=== PATIENT | female | born 1975 | race Caucasian/White ===

== ENCOUNTER → 2016-06-02 | Outpatient (CLI) | payer BC ==
[~2016-06-02] MED LIST: LIDOCAINE HCL 2% 2 ML VIAL (20MG/ML) ONE; MIDAZOLAM HCL 1 MG/ML 2ML VIAL ONE; PROPOFOL IV EMULSION 10 MG/ML 20 ML VIAL IV ONE
--- NOTE | 2016-06-02 19:12 | DIAGNOSTIC IMAGING REPORT ---
MRI RIGHT FOREFOOT WITHOUT IV CONTRAST CLINICAL HISTORY: Toe pain. Clinical concern for fracture. COMPARISON STUDY: No priors. TECHNIQUE: MRI of the right forefoot is performed utilizing various T1 and T2-weighted sequences in the axial, sagittal, coronal planes. IV contrast was not administered for this examination. Note that interpretation is suboptimal without plain film correlate. FINDINGS: There is no MRI evidence of fracture in the right forefoot. No marrow edema is seen. The joint spaces are preserved. The overlying soft tissues are within normal limits. The regional musculature is normal in bulk and signal intensity. The visualized flexor and extensor tendons are intact. IMPRESSION: Unremarkable MRI assessment of the right forefoot. There is no MRI evidence of fracture as clinically queried. Dictated: 06/02/2016 6:48 PM Transcribed: 06/02/2016 7:11 PM JARROD_[email or web address] Electronically signed by: Davide Munguia M.D. 06/02/2016 7:20 PM Dictated Date/Time: 06/02/2016 6:48 PM
== END | disposition home or self-care (01) ==
LOC: MERGE 17:48 → C.MRI 17:48
PROVIDERS: ATTEND Podiatrist Foot & Ankle Surgery
DX: M79.674 Pain in right toe(s) (principal); S92.901A Unspecified fracture of right foot, initial encounter for closed fracture; X58.XXXA Exposure to other specified factors, initial encounter

== ENCOUNTER → 2016-06-13 | Day surgery (SDC) | payer BC ==
[2016-06-12 08:56] VITALS: Ht 179.1 cm; Wt 81.8 kg
[~2016-06-13] VITALS: Ht 179.1 cm; Wt 81.8 kg
[~2016-06-13] MED LIST changes: +ATROPINE SULFATE 0.1 MG/ML 5ML SYR IV PRN; +BUPIVACAINE 0.5 % 5 MG/1 ML MPF 30ML VIAL ONE; +CEFAZOLIN 2000 MG/60 ML D5W IV SCH; +DEXAMETHASONE SOD INJ 4 MG/ML VIAL ONE; +EpHEDrine SULFATE INJ 50 MG/ML AMP IV PRN; +FENTANYL CITRATE INJ 50 MCG/1 ML 2 ML VIAL IV PRN; +FENTANYL CITRATE INJ 50 MCG/1 ML 2 ML VIAL ONE; +FLUMAZENIL 0.1 MG/1 ML 10 ML VIAL IV PRN; +HYDROCODONE/ACETAMOPHEN 5/325MG TAB PO PRN; +HYDROmorphone INJ 2 MG/ML SYR/VIAL IV PRN; +LABETALOL HCL IV 5 MG/ML 20ML IV PRN; +LACTATED RINGER'S 1000ML 1,000 ML IV SCH; +LIDOCAINE HCL 1% 20 ML VIAL ONE; +MEPERIDINE HCL 25 MG/ML CARP IV PRN; +METOCLOPRAMIDE HCL INJ 5 MG/ML 2 ML VIAL IV PRN; +NALOXONE HCL 0.4 MG/1 ML VIAL/CARP IV PRN; +ONDANSETRON INJ 2 MG/ML 2 ML VIAL IV PRN; +ONDANSETRON INJ 2 MG/ML 2 ML VIAL ONE; +OXYCODONE/ACETAMINOPHEN 5-325 TAB PO PRN; +PHENYLEPHRINE 100MCG/ML 5ML SYR IV PRN; +SODIUM CHLORIDE 0.9% 1000ML 1,000 ML IV SCH
--- NOTE | 2016-06-13 06:55 | History & Physical Bridge - [place] ---
H&P Re-Evaluation Bridge Note: I have examined the patient, reviewed the History & Physical and in the interval since the performance of the History & Physical I have noted the following changes of clinical significance: No changes noted procedure is right foot bunion correction with fixation and right foot fifth digit hammertoe correction.
--- NOTE | 2016-06-13 08:54 | Discharge Instructions-SurgCtr ---
Discharge Instructions Visit Reason for Visit: Right Foot Hammertoe, Hallux Valgus, Pain Discharge Goals Goal(s): Decrease discomfort, Improve function Activity Recommendations Activity Limitations: as noted below (non weightbearing right foot) Lifting Limitations: no more than 5 pounds Exercise/Sports Limitations: none Shower/Bathe: keep incision dry Driving or Machine Use: no driving Anesthesia . Post Anesthesia Instructions: If you have had General Anesthesia or IV Sedation: * Do not drive today. * Resume driving when surgeon permits. * Do not make important decisions or sign legal documents today. * Call surgeon for: 1. Temperature elevations greater than 101 degrees F. 2. Uncontrollable pain. 3. Excessive bleeding. 4. Persistent nausea and vomiting. 5. Medication intolerance (nausea, vomiting or rash). * For nausea and vomiting use only clear liquids such as: tea, soda, bouillon until nausea subsides, then gradually increase diet as tolerated. * If you have any concerns or questions, call your surgeon's office. If physician is unavailable and it is an emergency, call 911 or go to the nearest emergency room. . Diet Recommendations Home Diet: no limitations Procedures Procedures Performed: Right Foot Bunion And Fifth Digit Hammertoe Deformity Surgical Correction By Removing The Bumps and Realign The Joints With Fixation And Fusion Pending Studies Studies pending at discharge: no Medical Emergencies . Who to Call and When: Medical Emergencies: If at any time you feel your situation is an emergency, please call 911 immediately. . Non-Emergent Contact Non-Emergency issues call your: Primary Care Provider Call Non-Emergent contact if: temperature is above 101.5 . . "Provider Documentation" section prepared by Rosalva Keene.
--- NOTE | 2016-06-13 08:55 | [facility] Post Operative Brief Note ---
Immediate Operative Summary Operative Date Jun 13, 2016. Pre-Operative Diagnosis Right foot hammertoe, hallux valgus Post-Operative Diagnosis Same as preop Procedure(s) Performed Right Foot Bunion And Fifth Digit Hammertoe Deformity Surgical Correction By Removing The Bumps and Realign The Joints With Fixation And Fusion Surgeon Dr. Tate Whizzer Operator Surgeon(s) None Estimated Blood Loss 1 mL Findings bone right Specimens A: Right foot bone Drains none Anesthesia general Complication(s) None Disposition Recovery Room / PACU
--- NOTE | 2016-06-13 09:34 | Anesthesia Progress Nt - [facility] ---
Anesthesia Post Op Note Date & Time Jun 13, 2016 at 09:35 Vital Signs Pain Intensity: 0 Vital Signs Past 12 Hours Date Time Temp Pulse Resp B/P Pulse Ox O2 Delivery O2 Flow Rate FiO2 06/13/16 09:28 36.4 131/86 06/13/16 09:26 80 11 96 06/13/16 09:26 87 16 96 06/13/16 09:23 132/85 06/13/16 09:21 71 12 06/13/16 09:21 70 12 99 06/13/16 09:18 128/84 06/13/16 09:13 128/87 06/13/16 09:11 81 19 93 06/13/16 09:11 76 19 94 06/13/16 09:08 122/93 06/13/16 09:06 82 06/13/16 09:06 82 96 06/13/16 09:03 127/82 06/13/16 08:58 120/82 06/13/16 08:57 36.4 86 20 130/90 96 Mask 6 06/13/16 08:56 89 22 93 06/13/16 08:56 87 20 95 06/13/16 06:27 36.8 83 22 146/90 98 Room Air Notes Mental Status: alert / awake / arousable, participated in evaluation Pt Amnestic to Procedure: Yes Nausea / Vomiting: adequately controlled Pain: adequately controlled Airway Patency, RR, SpO2: stable & adequate BP & HR: stable & adequate Hydration State: stable & adequate Anesthetic Complications: no major complications apparent
[2016-06-13 09:45] VITALS: TEMP 36.5
[2016-06-13 10:00] VITALS: BP 132/90; PULSE 81; O2SAT 97
--- NOTE | 2016-06-13 11:32 | DIAGNOSTIC IMAGING REPORT ---
Intraoperative right foot 2 views CLINICAL HISTORY: RIGHT FOOT BUNION AND 5TH DIGIT HAMMERTOE COMPARISON STUDY: None FLUOROSCOPY TIME: 16 seconds. 2 intraoperative fluoroscopic spot images are provided for interpretation.. FINDINGS: There are postsurgical changes of a first metatarsal bunionectomy. A single screw is visualized within the first metatarsal head/neck. There are postsurgical changes of an osteotomy involving the proximal to phalangeal joint of the fifth toe. A wire traverses the proximal and distal interphalangeal joints. IMPRESSION: Intraoperative fluoroscopic spot images with postsurgical changes involving the first metatarsal and fifth toe. Electronically signed by: Noam Chu M.D. 06/13/2016 11:30 AM Dictated Date/Time: 06/13/2016 11:29 AM
--- NOTE | 2016-06-13 14:05 | OPERATIVE REPORT ---
DATE OF OPERATION: 06/13/2016 PREOPERATIVE DIAGNOSIS: Painful right foot and bunion deformity and painful right foot fifth digit hammertoe deformity. POSTOPERATIVE DIAGNOSIS: Same. PROCEDURE: Right foot bunion correction with fixation and right fifth hammertoe correction with percutaneous fixation. SURGEON: Dr. Rosalva Keene DPM. ANESTHESIA: General anesthesia. HEMOSTASIS: Pneumatic ankle tourniquet at 250 mmHg. BLOOD LOSS: 1 mL. PROCEDURE FOLLOWS: The patient was brought in the operating room and placed in the supine position. The right lower extremity was prepped and draped in the usual sterile manner. A 1:1 mixture of 1% lidocaine plain and 0.5% Marcaine was utilized to anesthetize the right foot at the area of the first metatarsophalangeal joint and at the right fifth digit in ring block form. At this time, the tourniquet was inflated and anesthesia was induced. A timeout was taken and the procedure began. A dorsal linear incision was made over the right first metatarsophalangeal joint. Dissection was carried through the skin and subcutaneous tissues to the level of the joint capsule. The joint capsule was transcribed in line with the original incision and dissected both medially and laterally to expose the first metatarsal head. The first metatarsal head did have an area of arthritis and arthritic medial eminence present. This medial eminence was resected utilizing the sagittal saw and passed off the table and sent to pathology for permanent specimen. Next, the Rakesh bunionectomy was performed. The plantar cut made first followed by the dorsal cut. This is a Chevron shaped osteotomy and the distal fragment was transferred laterally just a very small amount as the IM angle preoperatively was only about a 13 degree IM angle and just a small amount of lateral deviation of the sesamoids. At this time, the distal fragment was held in place utilizing K-wire and the Arthrex QuickFix cannulated screw set. Position was checked with intraoperative fluoroscopy and found to be appropriate. The depth gauge was measured followed by the countersink and drilling for 3-0 cannulated Arthrex screw, a 24 x 3.0 mm screw was measured and applied across the K-wire, the K-wire was removed. The screw was tightened down to 2 finger tightness. Again, intraop fluoroscopy pictures confirmed position and location which was found to be appropriate. The area was flushed with copious amounts of normal saline. Any remaining prominent bone which was a small amount dorsally was smoothed utilizing a bur as well as the removal of the overhanging medial aspect of bone was resected and passed off the table and sent to pathology for permanent specimen. The toe was taken through range of motion and found to be appropriate at the first metatarsophalangeal joint. At this time, the capsule was closed with 3-0 Vicryl. The subcutaneous tissues were closed with 3-0 Vicryl and the skin was closed utilizing 3-0 nylon in a combination of horizontal mattress and simple interrupted stitches. Next, attention was directed to the fifth digit. A derotational arthroplasty procedure was performed. An ellipse of skin was removed with the incision being placed from proximal lateral to distal medial. Again, the elliptical incision was performed. The ellipse of skin was removed. The long extensor tendon of the fifth digit was transected at the proximal interphalangeal joint level and dissected both proximally and distally to expose the first metatarsal head. First metatarsal head was found to have a prominence laterally. This was what was extremely irritating to the patient. She did have a prior surgery which arthritis likely this contributory to performing this arthritic nodule laterally. The head was excised and passed off the table and sent to pathology for permanent specimen. Next, the area was flushed with copious amounts of normal saline. A 0.045 K-wire was driven first distally out of the fifth digit and then proximally under the proximal phalanx. Again, position checked with intraoperative fluoroscopy. The redundant bone that was present laterally was removed. The toe had an anatomical position. At this point, the K-wire was cut and left in place for percutaneous fixation and will be removed in the office at a later date in the postop period. Next, the long extensor tendon was reattached and realigned utilizing 3-0 Vicryl and at this point, the skin was closed in a derotational position and 3-0 nylon with simple interrupted sutures was applied to close the skin. Compressive and corrective dressings were applied to the right lower extremity along with a posterior splint. The tourniquet was deflated and the patient has good hemodynamic response noted to the right lower extremity. She was taken to the recovery room with all vital signs stable and intact. She will follow up with me in the office in 1 week. She was made aware of all risks and benefits of the procedure and signed consent. She did try utilizing larger shoe gear. She did try different types of orthotics. She had an MRI and an EKG performed preoperatively which were reviewed with the patient in the office. Her pain was significant from the prior surgery that she had and that is why she opted for surgical intervention. Again, she signed consent and will follow up with me in the office in 1 week. I attest to the content of the Intraoperative Record and any orders documented therein. Any exceptio ns are noted below.
== END | disposition home or self-care (01) ==
LOC: X.SURG 06:08
PROVIDERS: ATTEND Podiatrist
DX: M20.41 Other hammer toe(s) (acquired), right foot (principal); M21.611 Bunion of right foot